=== PATIENT | female | born 1995 | race Caucasian/White ===

== ENCOUNTER → 2021-02-07 10:35 | Outpatient (CLI) | payer OTHER, SELFPAY ==
[2021-02-07 20:03] LABS: TSH w/ Reflex to FT4 2.02 uIU/mL (0.47-4.68)
== END ==
PROVIDERS: PCP Physician Assistant; Referring Provider Physician Assistant; Visit Provider Physician Assistant
DX: R79.89 Other specified abnormal findings of blood chemistry (principal)
CPT/HCPCS: 84443

== ENCOUNTER → 2021-04-04 09:58 | Outpatient (CLI) | payer OTHER, SELFPAY ==
[2021-04-04 19:01] LABS: Cholesterol 164 mg/dL (140-199); Glucose 85 mg/dL (70-100); HDL Cholesterol 55 mg/dL (40-60); LDL Cholesterol Calculated 82 mg/dL (<100); Triglycerides 136 mg/dL (35-150)
[2021-04-04 19:17] LABS: Follicle Stimulating Hormone 4.94 mIU/mL; Luteinizing Hormone 10.1 mIU/mL
[2021-04-04 19:22] LABS: Free T4, Direct Thyroxine 1.32 ng/dL (0.78-2.19)
[2021-04-06 09:38] LABS: Insulin Level Total 7.5 uIU/mL (2.6-24.9)
[2021-04-13 09:13] LABS: Percent Free Testosterone 3.47 % (0.50-2.80); Testosterone Free 1.12 ng/dL (0.10-0.85); Testosterone Total 32.2 ng/dL (10.0-55.0)
== END ==
PROVIDERS: PCP Physician Assistant; Visit Provider Obstetrics & Gynecology
DX: E28.2 Polycystic ovarian syndrome (principal)
CPT/HCPCS: 80061; 82947; 83001; 83002; 83525; 84402; 84403; 84439

== ENCOUNTER → 2021-11-21 09:02 | Outpatient (CLI) | payer OTHER, SELFPAY ==
[2021-11-21 19:09] LABS: Alanine Aminotransferase 22 IU/L (<35); Albumin 4.6 g/dL (3.5-5.0); Albumin Globulin Ratio 1.6 (1.0-2.8); Alkaline Phosphatase 47 U/L (38-126); Aspartate Aminotransferase 26 IU/L (14-36); BUN Creatinine Ratio 23.3 (6-22); Bilirubin Total 0.7 mg/dL (0.2-1.3); Blood Urea Nitrogen 17 mg/dL (7-17); Carbon Dioxide 26 mmol/L (22-32); Chloride 103 mmol/L (98-107); Estimated Glomerular Filt Rate > 60.0 mL/min (>60); Globulin 2.8 g/dL (1.7-4.1); Glucose 91 mg/dL (70-100); HEMOLYSIS < 15 (0-50); Potassium 4.2 mmol/L (3.4-5.1); Sodium 138 mmol/L (137-145); Total Protein 7.4 g/dL (6.3-8.2)
[2021-11-21 19:12] LABS: Hemoglobin A1C% w Est Avg Glu 4.6 % (4.0-6.0)
[2021-11-21 19:42] LABS: Ferritin 46 ng/mL (6-137)
[2021-11-23 13:10] LABS: Thyroid Peroxidase Antibodies 10 IU/mL (0-34)
== END ==
PROVIDERS: PCP Physician Assistant; Visit Provider Obstetrics & Gynecology
DX: E28.2 Polycystic ovarian syndrome (principal); R79.89 Other specified abnormal findings of blood chemistry; L68.0 Hirsutism; N92.6 Irregular menstruation, unspecified; Z84.2 Family history of other diseases of the genitourinary system
CPT/HCPCS: 80053; 82627; 82728; 83036; 86376